=== PATIENT | female | born 1970 | race African-American/Black ===

== ENCOUNTER 2016-08-10 11:30 | Emergency (ER) | payer MEDICARE, OTHER ==
[~2016-08-10 11:30] MED LIST: ALBUTEROL 0.5ML; ALBUTEROL17 G1 INH; ALBUTEROL17 GM INH; ALPRAZOLAM PO; AMBIEN PO; AMOXICILLIN PO; AMOXICILLIN500 M1 PO; ANTIVERT PO; BACTROBAN22 GM TOP; BACTROBAN22 GM TP; BENADRYL; BENADRYL PO; BENADRYL25 M3 PO; BENTYL10 M1 PO; BENTYL20 MG PO; CELEBREX; CELEXA PO; CLARITIN D PO; COZAAR25 MG; DICLOFENAC; FLEXERIL PO; FLEXERIL10 MG PO; FLONASE16 GM; GABAPENTIN300 MG; HYDROCODON-ACE1 EAC4 PO; HYDROCODONE; HYZAAR 100-12.51 TAB PO; IBUPROFEN400 MG; IBUPROFEN800 MG PO; KETOPROFEN PO; LORTAB 10/500 T1 TAB; LORTAB 101 TAB 10/5 PO; MOBIC15 MG PO; NAPROSYN500 MG PO; NAPROXEN PO; ORUDIS75 M1 PO; PERCOCET 5-3251 TAB PO; PERCOCET5/325 PO; PHENERGAN25 M1 PO; PHENERGAN25 MG PO; PREDNISONE PO; PREDNISONE10 MG/DOSE PO; PRILOSEC PO; PRILOSEC20 MG PO; PROPANOLOL; PROVENTIL17 GM INH; ROBAXIN; ROBAXIN 750750 M1 DOB; ROBAXIN500 MG; SEROQUEL; TESSALON PERLE100 M1 PO; TYLENOL #3 PO; TYLOX 5/500 CAP1 CAP PO; VICODIN PO; VOLTAREN75 MG PO; XANAX1 MG PO; ZESTORETIC 20/21 TAB PO; ZITHROMAX; ZOFRANODT PO; ZOLOFT PO; ZYRTEC PO; [UNRECOGNIZED DRUG - REMARK]
== END 2016-08-10 12:23 | disposition home or self-care (01) ==
LOC: SED 11:30
DX: L73.9 Follicular disorder, unspecified (principal); T50.905A Adverse effect of unspecified drugs, medicaments and biological substances, initial encounter; E78.5 Hyperlipidemia, unspecified; I10 Essential (primary) hypertension; Z88.8 Allergy status to other drugs, medicaments and biological substances
CPT/HCPCS: 99282